=== PATIENT | female | born 1970 | race Caucasian/White ===

== ENCOUNTER 2022-09-18 13:48 | Emergency (ER) | payer MEDICARE, MEDICAID, SELFPAY ==
[2022-09-18 14:25] VITALS: BP 140/85; PULSE 75; RESP 18; TEMP 35.9; O2SAT 97
--- NOTE | 2022-09-18 15:06 | ED.URI ---
HPI - URI/Sore Throat General Chief Complaint: Upper Respiratory Infection Stated Complaint: Cough,Runny Nose Time Seen by Provider: 09/18/22 15:07 Source: patient and RN notes reviewed Mode of arrival: ambulatory Limitations: no limitations History of Present Illness HPI Narrative: 51 y/o female presented for c/o cough, stuffy nose. Onset yesterday. States she has a chronic cough due to smoking but this is deeper, nonproductive. Endorses sick contact, stating her son started with similar symptoms 2 days ago. Denies worsening sob, wheezing, n/v/d/f/c. Not taking anything for symptoms. States she has ProAir inhaler but has not been using it. MD elicited complaint: cough Review of Systems Review of Systems: CONSTITUTIONAL: Denies malaise, chills, sweats, fever EYES: Denies visual changes, redness, or discharge ENT: Reports rhinorrhea, congestion, denies sinus pain, otalgia, sore throat CARDIOVASCULAR: Denies chest pain, palpitations, edema RESPIRATORY: Reports cough, post nasal drainage. Denies dyspnea GASTROINTESTINAL: Denies abdominal pain, nausea, vomiting, diarrhea MUSCULOSKELETAL: denies myalgia NEUROLOGIC: Denies headache Exam Narrative: GENERAL: well-appearing EYES: PERRLA, conjunctivae clear ENT: Mucous membranes moist. TM pearly akins with dull light reflex bilaterally; no tragal tenderness. Oropharynx erythematous without lesions or exudate, no drooling, no hoarseness, no trismus, uvula midline. CHEST: Clear to auscultation, breath sounds equal. No wheezing, rhonchi, rales, or stridor. No respiratory distress, speaks in full sentences. HEART: Regular rate and rhythm. No murmur heard. SKIN: Warm, dry, no rash. NEURO: Alert and oriented x3. PSYCH: Normal mood and affect Course Course Emergency Course: Patient is aware of diagnosis, understands and agrees to treatment plan. Anticipatory guidance given. Patient agrees to follow-up as directed and is aware of reasons to seek care at the emergency department. Portions of this record may have been created with voice recognition software Level of Care: Express Care Visit Vital Signs Vital signs: Vital Signs Temperature 96.6 F L 09/18/22 14:25 Pulse Rate 75 09/18/22 14:25 Respiratory Rate 18 09/18/22 14:25 Blood Pressure 140/85 09/18/22 14:25 Pulse Oximetry 97 09/18/22 14:25 Oxygen Delivery Room Air 09/18/22 14:25 Temperature 96.6 F L 09/18/22 14:25 Pulse Rate 75 09/18/22 14:25 Respiratory Rate 18 09/18/22 14:25 Blood Pressure 140/85 09/18/22 14:25 Pulse Oximetry 97 09/18/22 14:25 Oxygen Delivery Room Air 09/18/22 14:25 reviewed MDM - URI/Sore Throat MDM Narrative Medical decision making narrative: influenza negative. Results reviewed with patient. Advised supportive measures and signs/symptoms to go to the ER. Pt is appropriate for outpt treatment and f/u. Differential Diagnosis Differential diagnosis: Likely upper respiratory infection, sinusitis and viral infection Lab Data Labs: Influenza A Screen Negative Reference Range: Negative Influenza B Screen Negative Reference Range: Negative Discharge Plan Discharge Clinical Impression: Bronchitis Patient Disposition: Home, Self-Care Condition: Stable Instructions: Acute Bronchitis (ED) Additional Instructions: Influenza negative. Take medication as directed Recommend Flonase spray and Zyrtec (or Claritin/Sveta) for sinus congestion over the counter Cough syrup may cause drowsiness; avoid driving or take it at night time. Tylenol 1000mg every 8 hours as needed for pain Symptomatic treatment includes: rest, fluids, and increase humidity of the air at home. Follow up with your primary care provider as needed in 1 week Go to the ER for worsening symptoms or concerns Prescriptions: New benzonatate 200 mg caps
== END 2022-09-18 15:30 | disposition home or self-care (01) ==
PROVIDERS: Emergency Provider Nurse Practitioner Family
DX: J40 Bronchitis, not specified as acute or chronic (principal); Z72.0 Tobacco use
CPT/HCPCS: 87804; 99213; G0463

== ENCOUNTER 2022-10-19 16:17 | Emergency (ER) | payer MEDICARE, MEDICAID, SELFPAY ==
--- NOTE | 2022-10-19 17:03 | ED.URI ---
HPI - URI/Sore Throat General Chief Complaint: Upper Respiratory Infection Stated Complaint: cough,runny nose,throat irritation Time Seen by Provider: 10/19/22 17:03 Source: patient and RN notes reviewed Mode of arrival: ambulatory Limitations: no limitations History of Present Illness HPI Narrative: 51-year-old female presented headache, sinus pressure/congestion, cough. onset 3 days. Also reports a sore inside the right nostril. She denies shortness of breath, wheezing, nausea, vomiting, diarrhea, fevers or chills. She has not taking anything for symptoms. She denies sick contacts. She endorses a history of smoking 1 pack per day, but has not been smoking the past few days. Reports left lower wisdom tooth extraction 3 days ago. MD elicited complaint: cough Related Data Home Medications Medication Instructions Recorded Confirmed albuterol sulfate 90 mcg/actuation 2 puff inhalation DAILY 09/18/22 10/19/22 aerosol inhaler baclofen 20 mg tablet 20 mg PO DAILY 09/18/22 10/19/22 naproxen 500 mg tablet 500 mg PO BID 09/18/22 10/19/22 sertraline 100 mg tablet 100 mg PO DAILY 09/18/22 10/19/22 atorvastatin 40 mg tablet 40 mg PO DAILY 10/19/22 10/19/22 omeprazole 40 mg capsule,delayed 40 mg PO DAILY 10/19/22 10/19/22 release oxycodone-acetaminophen 5 mg-325 1 tablet PO DAILY PRN Pain 10/19/22 10/19/22 mg tablet topiramate 50 mg tablet 50 mg PO DAILY 10/19/22 10/19/22 trazodone 50 mg tablet 50 mg PO HS PRN Sleep 10/19/22 10/19/22 Allergies Allergy/AdvReac Type Severity Reaction Status Date / Time Penicillins Allergy Rash Verified 10/19/22 16:39 aspirin AdvReac Gastrointestinal Verified 10/19/22 16:39 Upset codeine AdvReac Gastrointestinal Verified 10/19/22 16:39 Upset Review of Systems Review of Systems: ROS per HPI Exam Narrative: GENERAL: Ill-appearing, nontoxic EYES: PERRLA, conjunctivae clear ENT: Mucous membranes moist. TMs pearly akins with dull light reflex bilaterally; no tragal tenderness. Oropharynx erythematous without lesions or exudate; Left lower gum appears healing; tender to left TMJ NECK: Supple. No lymphadenopathy CHEST: Clear to auscultation, breath sounds equal. No wheezing, rhonchi, rales, or stridor. HEART: Regular rate and rhythm. No murmur heard. SKIN: Warm, dry, no rash. NEURO: Alert and oriented x3. PSYCH: Normal mood and affect Course Course Emergency Course: Patient is aware of diagnosis, understands and agrees to treatment plan. Anticipatory guidance given. Patient agrees to follow-up as directed and is aware of reasons to seek care at the emergency department. Portions of this record may have been created with voice recognition software Level of Care: Express Care Visit Vital Signs Vital signs: reviewed MDM - URI/Sore Throat MDM Narrative Medical decision making narrative: COVID result reviewed with patient. Advised supportive measures and signs/symptoms to go to the ER. Pt is appropriate for outpt treatment and f/u. Differential Diagnosis Differential diagnosis: Likely upper respiratory infection, sinusitis and viral infection Discharge Plan Discharge Clinical Impression: Upper respiratory infection Patient Disposition: Home, Self-Care Condition: Stable Instructions: Upper Respiratory Infection (ED) Additional Instructions: covid negative Recommend Flonase spray and Zyrtec (or Claritin/Sveta); use saline nasal spray as needed to keep the nose moist Mupirocin ointment in the right nostril as directed over the counter Cough syrup may cause drowsiness; avoid driving or take it at night time. Tylenol 1000mg every 8 hours as needed for pain Symptomatic treatment includes: rest, fluids, and increase humidity of the air at home. Follow up with your primary care provider in 1 week. Go to the ER for worsening symptoms or concerns. Prescriptions: New prednisone 50 mg tablet 50 mg PO DAILY Qty: 5 0RF mupirocin 2 % ointment
[2022-10-19 17:52] VITALS: BP 144/103; PULSE 62; RESP 12; TEMP 36.8; O2SAT 96
== END 2022-10-19 17:54 | disposition home or self-care (01) ==
PROVIDERS: Emergency Provider Nurse Practitioner Family
DX: J06.9 Acute upper respiratory infection, unspecified (principal); Z20.822 Contact with and (suspected) exposure to COVID-19; F17.290 Nicotine dependence, other tobacco product, uncomplicated
CPT/HCPCS: 87426; 99213; C9803; G0463

== ENCOUNTER 2023-01-18 17:28 | Emergency (ER) | payer MEDICARE, MEDICAID, SELFPAY ==
--- NOTE | ~2023-01-18 | XR_ITS ---
EXAMINATION: XR chest 2V Exam Date/Time: 01/18/2023 19:15 CDT HISTORY: cough, sob, history copd Comparison: None available. RESULT: Lines, tubes, and devices: None. Lungs and pleura: Clear. Cardiomediastinal silhouette: Unremarkable. Other: No acute osseous or upper abdominal finding. IMPRESSION: No acute cardiopulmonary process. Reviewed, dictated and finalized at location K.
[2023-01-18 18:50] VITALS: BP 125/91; PULSE 95; RESP 22; TEMP 37.2; O2SAT 92
--- NOTE | 2023-01-18 19:09 | ED.URI ---
HPI - URI/Sore Throat General Chief Complaint: Upper Respiratory Infection Stated Complaint: Cough,Congestion,Headache,Diarrhea Source: patient Mode of arrival: ambulatory Limitations: no limitations History of Present Illness HPI Narrative: 52-year-old female presents to [facility] with complaint of cough, shortness of breath with exertion, headache, body aches and chills for the past 2 days. Patient reports that her grandson recently came home with cough from school. Patient has history of COPD. Patient is a smoker. Patient denies nausea vomiting, diarrhea, ear pain or sore throat. Patient reports that she does not use her inhaler she does not like the way it makes her feel. MD elicited complaint: rhinorrhea and nasal congestion Pertinent past history: COPD Onset (ago): day(s) (2) Able to tolerate fluids by mouth: Yes Related Data Home Medications Medication Instructions Recorded Confirmed albuterol sulfate 90 mcg/actuation 2 puff inhalation DAILY 09/18/22 01/18/23 aerosol inhaler baclofen 20 mg tablet 20 mg PO DAILY 09/18/22 01/18/23 naproxen 500 mg tablet 500 mg PO BID 09/18/22 01/18/23 sertraline 100 mg tablet 100 mg PO DAILY 09/18/22 01/18/23 atorvastatin 40 mg tablet 40 mg PO DAILY 10/19/22 01/18/23 omeprazole 40 mg capsule,delayed 40 mg PO DAILY 10/19/22 01/18/23 release oxycodone-acetaminophen 5 mg-325 1 tablet PO DAILY PRN Pain 10/19/22 01/18/23 mg tablet topiramate 50 mg tablet 50 mg PO DAILY 10/19/22 01/18/23 trazodone 50 mg tablet 50 mg PO HS PRN Sleep 10/19/22 01/18/23 Allergies Allergy/AdvReac Type Severity Reaction Status Date / Time Penicillins Allergy Rash Verified 01/18/23 18:49 aspirin AdvReac Gastrointestinal Verified 01/18/23 18:49 Upset codeine AdvReac Gastrointestinal Verified 01/18/23 18:49 Upset Review of Systems Constitutional: Constitutional: Reports chills, Reports fatigue, Denies fever(s) and Denies weakness ENT: Denies epistaxis, Reports nasal congestion and Denies sore throat Respiratory: Respiratory: Reports cough, Reports dyspnea and Reports wheezing Gastrointestinal: Gastrointestinal: Reports diarrhea, Reports nausea and Reports vomiting Integumentary/Breasts: Skin/Breast: Denies rash Neurologic: Denies dizziness, Denies syncope and Denies headache(s) PMFSH Comments At time of signature, I agree with nursing past medical, surgical, social and family history. There is no relevant family history pertinent to the presenting complaint. Exam Const: General: healthy appearing Nutritional Appearance: well nourished Orientation/consciousness: patient oriented x3 Limitations: no limitations HENMT: Head: normal to inspection Ears: external ears normal and TM's normal bilaterally Face/Nose/Sinus: Normal external nose present Face and sinus: normal facial exam and sinuses nontender Throat: posterior oropharynx normal and uvula midline Other: Bilateral nasal congestion noted. Eyes: Conjunctivae: conjunctivae normal Resp: Effort & Inspection: normal respiratory effort and not labored Auscultation: clear to auscultation bilaterally, wheezes scattered wheezes and diminished lung sounds diffuse Cardio: Rate: regular rate Rhythm: regular rhythm Heart sounds: no murmurs Skin: General skin exam: normal color Rashes: no rashes Neuro: Speech: normal speech Gait exam (Neuro): Normal gait present Psych: Affect: normal affect Attitude: cooperative Course Course Level of Care: Express Care Visit Vital Signs Vital signs: Vital Signs Temperature 37.2 C 01/18/23 18:50 Pulse Rate 95 01/18/23 18:50 Respiratory Rate 22 H 01/18/23 18:50 Blood Pressure 125/91 H 01/18/23 18:50 Pulse Oximetry 92 01/18/23 18:50 Oxygen Delivery Room Air 01/18/23 18:50 Temperature 37.2 C 01/18/23 18:50 Pulse Rate 95 01/18/23 18:50 Respiratory Rate 22 H 01/18/23 18:50 Blood Pressure 125/91 H 01/18/23 18:50 Pulse Oximetry 92 01/18/23 18:50
[2023-01-18 20:07] VITALS: PULSE 86; RESP 20; O2SAT 95
== END 2023-01-18 20:09 | disposition home or self-care (01) ==
PROVIDERS: Emergency Provider Nurse Practitioner Family
DX: J40 Bronchitis, not specified as acute or chronic (principal); J44.9 Chronic obstructive pulmonary disease, unspecified; F17.210 Nicotine dependence, cigarettes, uncomplicated; Z79.1 Long term (current) use of non-steroidal anti-inflammatories (NSAID); Z79.891 Long term (current) use of opiate analgesic; Z20.822 Contact with and (suspected) exposure to COVID-19
CPT/HCPCS: 71046; 87426; 87804; 99213; C9803; G0463

== ENCOUNTER 2023-07-16 12:46 | Emergency (ER) | payer MEDICARE, MEDICAID, SELFPAY ==
[2023-07-16 12:55] VITALS: BP 136/82; PULSE 83; RESP 18; TEMP 36.4; O2SAT 97
--- NOTE | 2023-07-16 13:00 | ED.HA ---
HPI - Headache General Chief Complaint: Headache Stated Complaint: Headache Time Seen by Provider: 07/16/23 13:00 Source: patient Mode of arrival: ambulatory Limitations: no limitations History of Present Illness HPI Narrative: 52-year-old female presents with complaint of headache since yesterday. No vision changes, photophobia, nausea or vomiting. Patient took dose of Tylenol this morning with no relief of pain. Patient reports history of migraines but that they have not bothered her for a while . Used to take Topamax to treat migraines. Patient reports that this headache is not as bad as the migraines she has to experience. States she will follow-up with her primary care physician if she continues to have headaches. Patient here for work note. All systems reviewed and negative except as noted above. Related Data Home Medications Medication Instructions Recorded Confirmed baclofen 20 mg tablet 20 mg PO DAILY 09/18/22 07/16/23 naproxen 500 mg tablet 500 mg PO BID 09/18/22 07/16/23 sertraline 100 mg tablet 100 mg PO DAILY 09/18/22 07/16/23 atorvastatin 40 mg tablet 40 mg PO DAILY 10/19/22 07/16/23 omeprazole 40 mg capsule,delayed 40 mg PO DAILY 10/19/22 07/16/23 release oxycodone-acetaminophen 5 mg-325 1 tablet PO DAILY PRN Pain 10/19/22 07/16/23 mg tablet levothyroxine 50 mcg tablet mcg 07/16/23 Allergies Allergy/AdvReac Type Severity Reaction Status Date / Time Penicillins Allergy Rash Verified 07/16/23 12:53 aspirin AdvReac Gastrointestinal Verified 07/16/23 12:53 Upset codeine AdvReac Gastrointestinal Verified 07/16/23 12:53 Upset Review of Systems Review of Systems: CONSTITUTIONAL: Denies fever, chills, or sweats. EYES: Denies visual changes, redness, or discharge. ENT: Denies rhinorrhea, congestion, sore throat, or otalgia. CARDIOVASCULAR: Denies chest pain, palpitations, or edema. RESPIRATORY: Denies cough or dyspnea. GASTROINTESTINAL: Denies abdominal pain, nausea, vomiting, or diarrhea. GENITOURINARY: Denies dysuria or hematuria. SKIN: Denies rash or itching. MUSCULOSKELETAL: Denies back pain, joint pain, or myalgia. NEUROLOGIC: Reports headache. Denies numbness, or weakness. PSYCHIATRIC: Denies anxiety or depression. All other systems reviewed are negative, except as documented in HPI. PMFSH Comments At time of signature, agree with nursing past medical, surgical, social and family history. There is no relevant family history pertinent to the presenting complaint. Exam Narrative: GENERAL: This is a well-nourished, well-developed patient, in no apparent distress. HEAD: normocephalic, atraumatic. EYES: PERRL. Sclera clear/white. Vision is grossly intact. extraocular motions intact. EARS: External ears normal, auditory canals clear and without drainage, TMs normal without perforation. Hearing grossly intact. NOSE: External nose normal with no obvious nasal discharge, nares without redness, no rhinorrhea. THROAT: Mucous membranes moist, posterior pharynx clear. NECK: Neck supple, non-tender without lymphadenopathy, masses or thyromegaly. CARDIOVASCULAR: Regular rate and rhythm without murmurs, gallops, or rubs. RESPIRATORY: Clear to auscultation. Breath sounds equal bilaterally. No wheezes, rales, or rhonchi. SKIN: warm, Dry, intact with no suspicious lesions or rash, good texture and turgor. NEURO: awake, alert, and oriented to person, place and time. There were no obvious focal neurologic abnormalities. Normal manufacturing management associate. EXTREMITIES: No joint tenderness, effusion, or edema noted. Course Course Level of Care: Express Care Visit Vital Signs Vital signs: Vital Signs Temperature 36.4 C 07/16/23 12:55 Pulse Rate 83 07/16/23 12:55 Respiratory Rate 18 07/16/23 12:55 Blood Pressure 136/82 07/16/23 12:55 Pulse Oximetry 97 07/16/23 12:55 Oxygen Delivery Room Air 07/16/23 12:55 Temperature 36.4 C 07/16/23 12:55 Pulse Rate 83
== END 2023-07-16 13:12 | disposition home or self-care (01) ==
PROVIDERS: Emergency Provider Nurse Practitioner Family
DX: R51.9 Headache, unspecified (principal); E78.00 Pure hypercholesterolemia, unspecified; J44.9 Chronic obstructive pulmonary disease, unspecified; K21.9 Gastro-esophageal reflux disease without esophagitis; M19.90 Unspecified osteoarthritis, unspecified site; E11.9 Type 2 diabetes mellitus without complications
CPT/HCPCS: 99213; G0463

== ENCOUNTER 2024-11-19 12:35 | Emergency (ER) | payer MEDICARE, SELFPAY ==
--- NOTE | 2024-11-19 12:47 | ED_ITS ---
HPI - URI/Sore Throat General Chief Complaint: Upper Respiratory Infection Stated Complaint: sorethroat, bilateral ear discomfort Time Seen by Provider: 11/19/24 12:47 Source: patient Mode of arrival: ambulatory Limitations: no limitations History of Present Illness HPI Narrative: Patient is a 54-year-old female that presents with sore throat, bilateral ear itching and cough for 3 days. Patient has tried Robitussin with honey and cough drops. Patient denies any fever chills, nausea, vomiting, diarrhea. Patient has history of bronchitis and pneumonia. Patient is occurred smoker. Patient states she was seen in [facility] yesterday and was told she would have prescription sent but did not. Related Data Home Medications ?Medication ?Instructions ?Recorded ?Confirmed ?Last Taken ?Type baclofen 20 mg tablet 20 mg PO DAILY 09/18/22 07/16/23 Unknown History naproxen 500 mg tablet 500 mg PO BID 09/18/22 07/16/23 Unknown History sertraline 100 mg tablet 100 mg PO DAILY 09/18/22 07/16/23 Unknown History atorvastatin 40 mg tablet 40 mg PO DAILY 10/19/22 07/16/23 Unknown History levothyroxine 50 mcg tablet mcg 07/16/23 Unknown History albuterol sulfate 90 mcg/actuation inhalation 11/19/24 Unknown History aerosol inhaler famotidine 20 mg tablet mg 11/19/24 Unknown History hydrocodone 10 mg-acetaminophen tablet 11/19/24 Unknown History 325 mg tablet pantoprazole 40 mg tablet,delayed mg PO 11/19/24 Unknown History release topiramate 25 mg tablet (Topamax) 25 mg PO DAILY 11/19/24 Unknown History Allergies Allergy/AdvReac Type Severity Reaction Status Date / Time Penicillins Allergy Rash Verified 11/19/24 12:57 aspirin AdvReac Gastrointestinal Verified 11/19/24 12:57 Upset codeine AdvReac Gastrointestinal Verified 11/19/24 12:57 Upset Review of Systems Review of Systems: All systems reviewed & are unremarkable except as noted in HPI and below Constitutional: Constitutional: Denies body ache(s), Denies chills, Denies fatigue, Denies fever(s), Denies headache(s), Denies malaise and Denies weakness Eyes: Eyes: Denies blurry vision, Denies itchy eyes and Denies loss of vision ENT: Reports otalgia, Denies headache(s), Reports nasal congestion, Denies sinus pain and Reports sore throat Cardiovascular: Cardiovascular: Denies chest pain, Denies irregular heart rhythm and Denies dyspnea Respiratory: Respiratory: Reports cough and Denies dyspnea Gastrointestinal: Gastrointestinal: Denies abdominal pain, Denies diarrhea, Denies nausea and Denies vomiting Musculoskeletal: Musculoskeletal: Denies back pain, Denies myalgias and Denies arthralgias Integumentary/Breasts: Skin/Breast: Denies pruritus and Denies rash Neurologic: Denies headache(s), Denies loss of vision and Denies weakness Psychiatric: Psychiatric: Reports no additional psychiatric complaints Endocrine: Endocrine: Denies fatigue Allergic/Immunologic: Allergic/Immunologic: Denies itchy eyes PMFSH Comments At time of signature, agree with nursing past medical, surgical, social and family history. There is no relevant family history pertinent to the presenting complaint. Exam Const: General: cooperative, healthy appearing, comfortable, no acute distress and well nourished Nutritional Appearance: well nourished Orientation/consciousness: patient oriented x3 Limitations: no limitations HENMT: Head: normal to inspection, normocephalic and atraumatic Ears: hearing grossly normal bilaterally, external ears normal, TM's normal bilaterally, EAC's normal and no periauricular adenopathy Face/Nose/Sinus: Normal external nose present, Abnormal mucous membranes and turbinates present erythematous bilateral and diffuse, normal facial exam, sinuses nontender and face symmetric Face and sinus: normal facial exam, sinuses nontender and face symmetric Mouth: Yes Normal oral and palatal mucosa present, Yes lip normal, Yes tongue normal, Yes Normal salivary glands and ducts present, Yes oropharynx normal and Yes moist mucous membranes Teeth and gingiva: dentition normal Throat: posterior oropharynx normal, tonsils normal, uvula midline and postnasal drainage Eyes: General: appearance normal, both eyes and all related structures Alignment and Position: alignment normal and position normal Periorbital: periorbital findings normal Eyelids: eyelids normal Pupils: Equal, round and reactive pupils present Neck: Neck: normal visual inspection, full ROM, no lymphadenopathy and supple Chest: Chest palpation & inspection: normal inspection of the chest and normal palpation of entire chest wall Resp: Effort & Inspection: normal respiratory effort, able to speak in complete sentences and Actively coughing wet Auscultation: clear to auscultation bilaterally, no crackles, no rales, no rhonchi and no wheezes Cardio: Rate: regular rate Rhythm: regular rhythm Heart sounds: S1 normal heart sound present and S2 normal heart sound present GI: Inspection: normal to inspection Skin: General skin exam: normal color and no rashes or lesions noted Neuro: General: patient oriented x3 and moves all extremities Cranial nerves: Yes Equal, round and reactive pupils present Speech: normal speech Gait exam (Neuro): Normal gait present Extrem: General: normal to inspection, full ROM and no edema Psych: Appearance: grossly normal and well kempt Mental Status: mental status grossly normal Speech and movement: Normal speech and movement present Affect: normal affect Attitude: cooperative Thought process: Normal thought process present Course Course Emergency Course: Discharge instructions reviewed with patient, as well as provided in writing per nursing staff. The instructions also include specific and strict return/GO TO THE ER as well as f/u information. All questions have been answered, and the patient deny any further questions with discharge and discharge plan. Portions of this record may have been created with voice recognition software Level of Care: Express Care Visit Vital Signs Vital signs: Reviewed MDM - URI/Sore Throat MDM Narrative Medical decision making narrative: Pt well hydrated appearing, in no respiratory distress, hemodynamically stable. Recommend supportive care. The patient is stable at time of discharge the clinical impression was discussed and the patient was given the opportunity to ask questions, which were addressed as completely as possible given the information available at present. Anticipatory guidance and return to care precautions were discussed and the importance of primary care follow-up was stressed and encouraged. The patient voiced understanding of the plan, indications to return, and the need for follow-up. Differential diagnosis considered: Martino virus, strep pharyngitis, allergic rhinitis, upper respiratory tract infection, sinusitis, rhinosinusitis, nasopharyngitis. viral pharyngitis, otitis media, otitis externa, otitis effusion, foreign body, cerumen impaction, viral syndrome, and influenza.? Exam findings show no acute concerns or changes; patient is non-toxic appearing and is in no distress.? Patient is appropriate for outpatient treatment and follow- up.? Medical Records Attestation: I reviewed the patient's medical records. Discharge Plan Discharge Clinical Impression: Acute purulent bronchitis Patient Disposition: Home, Self-Care Condition: Stable Instructions: Acute Bronchitis (ED) Additional Instructions: Take antibiotic as prescribed. Take steroids per package instructions. Use Tessalon Perles as needed for cough. Use inhaler with spacer as needed. Other symptomatic treatments include: -Alternate Tylenol and Motrin per package directions for fever or pain. -Antihistamine medication such as Benadryl at night and Zyrtec/Claritin/Sveta during the day can help improve symptoms. -Use Flonase twice a day for 5 days then daily to help reduce the inflammation and dry up your sinuses. -You can also use Sudafed or Mucinex. Be sure to drink plenty of water with these medications at least 8 ounces with every dose and it is important to drink 8 to 10 glasses of water per day. Water is a natural decongestant -Eat and drink things that are easy to swallow, like tea or soup, or popsicles. -Oral rinses such as: Salt water gargles and/or may use topical anesthetic (eg. Chloraseptic spray) or lozenges to relieve dryness or throat pain). -Frequent hand washing or hand health and physical education professor is one of the best ways to prevent spread of infection. -Using a vaporizer or humidifier at night will also help thin secretions and help with coughing up phlegm. -Follow up with primary care provider in 3-5 days if condition is not improving - For new or worsening symptoms go directly to the nearest ER Your blood pressure was elevated above 120/80 today at Urgent Care. This puts you above the threshold for follow up visit with a primary care provider. High blood pressure does not usually cause any symptoms, however it may lead to kidney failure, stroke, heart disease just to name a few if untreated . Many people are anxious when seeing a provider or nurse. As a result, you are not diagnosed with hypertension at this time unless your blood pressure is persistently high at two office visits at least one week apart. Some things that can help lower blood pressure are lifestyle modifications, such as light exercise, decreased salt in diet, and weight loss. It is important to follow up with a PCP about this within 1 week. Patient Language: Amharic Prescriptions: New azithromycin 250 mg tablet See Rx Instructions .ROUTE .COMPLEX Qty: 6 0RF Rx Instructions: For 250 mg dose pack: take 500 mg today (day 1), then 250 mg for 4 days (days 2-5) benzonatate 100 mg capsule 100 mg PO BID PRN (Reason: cough) Qty: 14 0RF methylprednisolone [Medrol (Benedict)] 4 mg tablets,dose pack See Rx Instructions .ROUTE .COMPLEX Qty: 21 0RF Rx Instructions: orally per package directions fluticasone propionate [Flonase Allergy Relief] 50 mcg/actuation spray,suspension 1 spray intranasal DAILY Qty: 16 0RF Rx Instructions: administer into each nostril No Action levothyroxine 50 mcg tablet hydrocodone-acetaminophen 10-325 mg tablet famotidine 20 mg tablet topiramate [Topamax] 25 mg tablet 25 mg PO DAILY pantoprazole 40 mg tablet,delayed release (DR/EC) PO albuterol sulfate 90 mcg/actuation HFA aerosol inhaler INHALATION sertraline 100 mg tablet 100 mg PO DAILY baclofen 20 mg tablet 20 mg PO DAILY naproxen 500 mg tablet 500 mg PO BID atorvastatin 40 mg tablet 40 mg PO DAILY Follow-up/Referrals: Les Smallwood MD [Physician] - 3 Days UNKNOWN,DOCTOR [Non-Staff] - Stand Alone Forms: Work/School Release IP Time of Disposition: 13:08
[2024-11-19 12:55] VITALS: BP 143/86; PULSE 84; RESP 18; TEMP 36.5; O2SAT 98
== END 2024-11-19 13:12 | disposition home or self-care (01) ==
PROVIDERS: Emergency Provider Nurse Practitioner Family
DX: J20.9 Acute bronchitis, unspecified (principal); E78.00 Pure hypercholesterolemia, unspecified; J44.9 Chronic obstructive pulmonary disease, unspecified; K21.9 Gastro-esophageal reflux disease without esophagitis; M19.90 Unspecified osteoarthritis, unspecified site; E11.9 Type 2 diabetes mellitus without complications
CPT/HCPCS: 99213; G0463